=== PATIENT | male | born 1960 | race Two or more races ===

== ENCOUNTER 2018-07-06 06:08 | Day surgery (SDC) | payer OTHER ==
[2018-07-06] MEDS ORDERED: PROPOFOL 40 ML (07:30)
[2018-07-06] MEDS ORDERED: LIDOCAINE 2% (SDV) 5 ML INJ (07:30)
== END 2018-07-06 10:51 | disposition home or self-care (01) ==
LOC: GIL 06:08
DX: Z12.11 Encounter for screening for malignant neoplasm of colon (principal); K57.90 Diverticulosis of intestine, part unspecified, without perforation or abscess without bleeding; K64.8 Other hemorrhoids
CPT/HCPCS: 45378